=== PATIENT | female | born 1980 | race Caucasian/White ===

== ENCOUNTER 2016-08-04 20:18 | Emergency (ER) | payer SELFPAY ==
[~2016-08-04] VITALS: Ht 165.1 cm; Wt 60.8 kg
[2016-08-04 20:21] VITALS: BP 119/79
[2016-08-04] MEDS ORDERED: OXYcodone/APAP 5/325MG TABLET ONE (21:37)
[2016-08-04] MEDS ORDERED: KETOROLAC 30 MG/1 ML ONE (21:38)
[2016-08-04] MEDS ORDERED: KETOROLAC 30 MG/1 ML IM ONE (22:00)
[2016-08-04] MEDS ORDERED: OXYcodone/APAP 5/325MG TABLET PO ONE (22:00)
== END 2016-08-04 21:57 | disposition home or self-care (01) ==
LOC: ED 21:55
DX: S39.012A Strain of muscle, fascia and tendon of lower back, initial encounter (principal); W19.XXXA Unspecified fall, initial encounter; Y93.89 Activity, other specified; Y99.8 Other external cause status; Y92.009 Unspecified place in unspecified non-institutional (private) residence as the place of occurrence of the external cause
CPT/HCPCS: 71101; 96372; 99284; J1885